=== PATIENT | male | born 1990 | race Caucasian/White ===

== ENCOUNTER 2017-05-17 19:42 | Emergency (ER) | payer BC ==
[~2017-05-17] VITALS: Ht 172.7 cm; Wt 117.0 kg
[2017-05-17] MEDS ORDERED: ACETAMINOPHEN 325 MG TABLET PO ONE (22:00)
[2017-05-17] MEDS ORDERED: ACETAMINOPHEN 325 MG TABLET ONE (22:01)
[2017-05-17 22:30] VITALS: BP 117/70
== END 2017-05-17 22:33 | disposition home or self-care (01) ==
LOC: ED 22:27
DX: N49.2 Inflammatory disorders of scrotum (principal)
CPT/HCPCS: 76870; 81003; 99285

== ENCOUNTER 2017-05-20 14:16 | Inpatient (IN) | payer BC ==
[~2017-05-20] VITALS: Ht 172.7 cm; Wt 121.3 kg
[2017-05-20] MEDS ORDERED: ONDANSETRON 2MG/ML, 2ML IVPush ONE (15:30)
[2017-05-20] MEDS ORDERED: HYDROmorphone 1 MG/ML, 1ML IVPush PRN (15:30)
[2017-05-20] MEDS ORDERED: SODIUM CHLORIDE 0.9% 1,000ML IVBOLUS ONE (15:30)
[2017-05-20] MEDS ORDERED: SODIUM CHLORIDE FLUSH 10ML SYR IVF ONE (15:30)
[2017-05-20 15:44] LABS: BLOOD UREA NITROGEN 14 mg/dL (7-18)
[2017-05-20] MEDS ORDERED: OMNIPAQUE 350 MG/ML, 100ML BOTTLE ONE (16:33)
[2017-05-20] MEDS ORDERED: ONDANSETRON 2MG/ML, 2ML ONE (16:38)
[2017-05-20] MEDS ORDERED: methylPREDNISolone SOD SUCC 40 MG/ML ONE (16:38)
[2017-05-20] MEDS ORDERED: DIPHENHYDRAMINE 50 MG/ML, 1ML ONE (16:38)
[2017-05-20] MEDS ORDERED: DIPHENHYDRAMINE 50 MG/ML, 1ML IVPush ONE (17:00)
[2017-05-20] MEDS ORDERED: methylPREDNISolone SOD SUCC 40 MG/ML IV ONE (17:00)
[2017-05-20] MEDS ORDERED: HYDROmorphone 1 MG/ML, 1ML ONE (17:22)
[2017-05-20] MEDS ORDERED: AMPICILLIN/SULBACTAM 3 GM in SODIUM CHLORIDE 0.9% 100 ML IV ONE (18:00)
[2017-05-20] MEDS ORDERED: ACETAMINOPHEN 325 MG TABLET PO PRN (18:30)
[2017-05-20] MEDS ORDERED: BISACODYL 10 MG SUPP PR PRN (18:30)
[2017-05-20] MEDS ORDERED: ONDANSETRON 2MG/ML, 2ML IVPush PRN (18:30)
[2017-05-20] MEDS ORDERED: VANCOMYCIN PER PHARMACY MC PRN (18:30)
[2017-05-20] MEDS ORDERED: POLYETHYLENE GLYCOL 17 GM PACKET PO PRN (18:30)
[2017-05-20] MEDS: AMPICILLIN/SULBACTAM 3 GM in SODIUM CHLORIDE 0.9% 100 ML IV SCH (18:30)
[2017-05-20 18:50] VITALS: BP 130/79
[2017-05-20] MEDS ORDERED: PHARMACOKINETIC MONITORING MC PRN (19:30)
[2017-05-20] MEDS ORDERED: PHARMACOKINETIC CONSULTATION MC ONE (19:30)
[2017-05-20] MEDS: HEPARIN 5,000 UNITS/ML, 1ML SQ SCH (19:57)
[2017-05-20] MEDS: SODIUM CHLORIDE FLUSH 10ML SYR IVF SCH (19:57)
[2017-05-20] MEDS: VANCOMYCIN 2,000 MG in SODIUM CHLORIDE 0.9% 500 ML IV SCH (19:57)
[2017-05-21 00:14] VITALS: BP 127/82
[2017-05-21] MEDS: AMPICILLIN/SULBACTAM 3 GM in SODIUM CHLORIDE 0.9% 100 ML IV SCH ×4 (00:21→19:50)
[2017-05-21] MEDS: morphine SULFATE 10 MG/ML, 1ML IVPush PRN (00:40)
[2017-05-21 05:22] LABS: BLOOD UREA NITROGEN 11 mg/dL (7-18)
[2017-05-21 05:25] LABS: ASPARTATE AMINO TRANSFERASE 23 U/L (15-37)
[2017-05-21 05:34] VITALS: BP 116/74
[2017-05-21 07:02] VITALS: BP 108/70
[2017-05-21] MEDS: SENNA/DOCUSATE TABLET PO SCH (08:26)
[2017-05-21] MEDS: HEPARIN 5,000 UNITS/ML, 1ML SQ SCH ×2 (08:27→17:44)
[2017-05-21] MEDS: SODIUM CHLORIDE FLUSH 10ML SYR IVF SCH ×2 (08:46→21:00)
[2017-05-21] MEDS: VANCOMYCIN 2,000 MG in SODIUM CHLORIDE 0.9% 500 ML IV SCH ×2 (08:46→21:32)
[2017-05-21] MEDS ORDERED: BUPIVACAINE/PF 0.25% ONE (09:12)
[2017-05-21] MEDS ORDERED: FENTANYL PF 100 MCG/2ML ONE (09:14)
[2017-05-21] MEDS ORDERED: HYDROmorphone 1 MG/ML, 1ML IV PRN (09:30)
[2017-05-21] MEDS ORDERED: OXYcodone 5 MG/5 ML ORAL.SOL UDC PO PRN (09:30)
[2017-05-21] MEDS ORDERED: hydrALAzine 20 MG/ML, 1ML IV PRN (09:30)
[2017-05-21] MEDS ORDERED: PROMETHAZINE 25 MG/ML, 1ML IV PRN (09:30)
[2017-05-21] MEDS ORDERED: LABETALOL 5MG/ML, 20ML IV PRN (09:30)
[2017-05-21] MEDS ORDERED: MIDAZOLAM 1 MG/ML, 2ML IV PRN (09:30)
[2017-05-21] MEDS ORDERED: ONDANSETRON 2MG/ML, 2ML IVPush PRN (09:30)
[2017-05-21] MEDS ORDERED: MEPERIDINE/PF 25MG/0.5ML IVPush PRN (09:30)
[2017-05-21] MEDS ORDERED: FENTANYL PF 100 MCG/2ML IV PRN (09:30)
[2017-05-21] MEDS ORDERED: ONDANSETRON 2MG/ML, 2ML ONE (09:35)
[2017-05-21] MEDS ORDERED: PROPOFOL 10 MG/ML, 20ML ONE (09:35)
[2017-05-21] MEDS ORDERED: SUCCINYLCHOLINE 20 MG/ML, 10ML ONE (09:35)
[2017-05-21] MEDS ORDERED: METOCLOPRAMIDE 5 MG/ML, 2ML ONE (09:35)
[2017-05-21] MEDS ORDERED: DEXAMETHASONE 4 MG/ML, 1ML ONE (09:35)
[2017-05-21] MEDS ORDERED: BUPIVACAINE/PF 0.25% INJ ONE (09:55)
[2017-05-21] MEDS ORDERED: OXYcodone 5 MG/5 ML ORAL.SOL UDC ONE (10:41)
[2017-05-21] MEDS: HYDROcodone/APAP 5/325 TABLET PO PRN ×3 (12:42→21:42)
[2017-05-21 13:37] VITALS: BP 123/79
[2017-05-21 18:29] VITALS: BP 123/75
[2017-05-22] MEDS: HEPARIN 5,000 UNITS/ML, 1ML SQ SCH ×3 (01:42→17:46)
[2017-05-22] MEDS: HYDROcodone/APAP 5/325 TABLET PO PRN ×2 (01:44→08:39)
[2017-05-22] MEDS: AMPICILLIN/SULBACTAM 3 GM in SODIUM CHLORIDE 0.9% 100 ML IV SCH ×5 (01:44→20:52)
[2017-05-22 02:26] VITALS: BP 126/78
[2017-05-22 07:25] VITALS: BP 120/68
[2017-05-22 07:27] LABS: BLOOD UREA NITROGEN 11 mg/dL (7-18)
[2017-05-22] MEDS: SODIUM CHLORIDE FLUSH 10ML SYR IVF SCH ×2 (08:34→20:52)
[2017-05-22] MEDS: VANCOMYCIN 2,000 MG in SODIUM CHLORIDE 0.9% 500 ML IV SCH ×2 (08:34→22:01)
[2017-05-22] MEDS: SENNA/DOCUSATE TABLET PO SCH (08:35)
[2017-05-22] MEDS ORDERED: DIPHENHYDRAMINE 25 MG CAPSULE PO PRN (09:30)
[2017-05-22] MEDS: morphine SULFATE 10 MG/ML, 1ML IVPush PRN ×2 (13:28→14:10)
[2017-05-22 14:41] VITALS: BP 127/72
[2017-05-22 19:59] VITALS: BP 126/78
[2017-05-23 01:24] VITALS: BP 114/70
[2017-05-23] MEDS: AMPICILLIN/SULBACTAM 3 GM in SODIUM CHLORIDE 0.9% 100 ML IV SCH ×3 (02:11→14:13)
[2017-05-23] MEDS: HEPARIN 5,000 UNITS/ML, 1ML SQ SCH ×2 (02:12→09:15)
[2017-05-23 06:21] LABS: BLOOD UREA NITROGEN 14 mg/dL (7-18)
[2017-05-23 06:54] VITALS: BP 116/81
[2017-05-23] MEDS: SODIUM CHLORIDE FLUSH 10ML SYR IVF SCH (08:06)
[2017-05-23] MEDS: VANCOMYCIN 2,000 MG in SODIUM CHLORIDE 0.9% 500 ML IV SCH (09:15)
[2017-05-23] MEDS: SENNA/DOCUSATE TABLET PO SCH (09:15)
[2017-05-23] MEDS ORDERED: HYDR-3240 PO (10:54)
[2017-05-23] MEDS ORDERED: SULF1TAB24 PO (10:54)
[2017-05-23] MEDS: morphine SULFATE 10 MG/ML, 1ML IVPush PRN (13:17)
[2017-05-23 13:33] VITALS: BP 124/75
== END 2017-05-23 15:50 | disposition home health service (06) | DRG 728 ==
LOC: ED 15:45 → EDIP 17:36 → 4NOR 18:47
PROVIDERS: ADMIT Hospitalist; ATTEND Hospitalist
PROC: 0V953ZZ Drainage of Scrotum, Percutaneous Approach (ICD-10-PCS; principal; 2017-05-21 10:30)
DX: N49.2 Inflammatory disorders of scrotum (principal); J45.909 Unspecified asthma, uncomplicated; R00.0 Tachycardia, unspecified; Z91.041 Radiographic dye allergy status; Z83.3 Family history of diabetes mellitus; Z82.49 Family history of ischemic heart disease and other diseases of the circulatory system
CPT/HCPCS: 36415; 72193; 80048; 80053; 82040; 85025; 87070; 87075; 87077; 87186; 87205; 96361; 96365; 96375; J0295; J1100; J1170; J1644; J2405; J2704; J3010; J3370; J3490; Q9967; J0330; J1200; J2270; J2765; J2920; J7030; J7040; Q0163

== ENCOUNTER → 2017-05-24 | Outpatient (CLI) | payer BC ==
[~2017-05-24] MED LIST: HYDR-3240 PO; SULF1TAB24 PO
== END | disposition home or self-care (01) ==
LOC: WOUND 12:58
PROVIDERS: ATTEND Internal Medicine
DX: T81.31XA Disruption of external operation (surgical) wound, not elsewhere classified, initial encounter (principal); J45.909 Unspecified asthma, uncomplicated; Z72.89 Other problems related to lifestyle; Y92.89 Other specified places as the place of occurrence of the external cause; Y83.8 Other surgical procedures as the cause of abnormal reaction of the patient, or of later complication, without mention of misadventure at the time of the procedure
CPT/HCPCS: 97597; 99205; 99215

== ENCOUNTER → 2017-05-25 | Outpatient (CLI) | payer BC | END | disposition home or self-care (01) | LOC: WOUND 08:09 | PROVIDERS: ATTEND Internal Medicine Cardiovascular Disease | DX: T81.31XD Disruption of external operation (surgical) wound, not elsewhere classified, subsequent encounter (principal); J45.909 Unspecified asthma, uncomplicated; Z72.89 Other problems related to lifestyle; Z72.0 Tobacco use; Y83.8 Other surgical procedures as the cause of abnormal reaction of the patient, or of later complication, without mention of misadventure at the time of the procedure | CPT/HCPCS: 99212 ==

== ENCOUNTER → 2017-05-26 | Outpatient (CLI) | payer BC | END | disposition home or self-care (01) | LOC: WOUND 09:30 | PROVIDERS: ATTEND Physician Assistant | DX: T81.31XA Disruption of external operation (surgical) wound, not elsewhere classified, initial encounter (principal); Y83.8 Other surgical procedures as the cause of abnormal reaction of the patient, or of later complication, without mention of misadventure at the time of the procedure; Y92.89 Other specified places as the place of occurrence of the external cause; L03.314 Cellulitis of groin; L02.214 Cutaneous abscess of groin; J45.909 Unspecified asthma, uncomplicated; Z87.891 Personal history of nicotine dependence; Z72.89 Other problems related to lifestyle | CPT/HCPCS: 99212 ==

== ENCOUNTER → 2017-05-31 | Outpatient (CLI) | payer BC | END | disposition home or self-care (01) | LOC: WOUND 14:19 | PROVIDERS: ATTEND Internal Medicine | DX: T81.31XD Disruption of external operation (surgical) wound, not elsewhere classified, subsequent encounter (principal); J45.909 Unspecified asthma, uncomplicated; Z72.89 Other problems related to lifestyle; Z87.891 Personal history of nicotine dependence; Y83.8 Other surgical procedures as the cause of abnormal reaction of the patient, or of later complication, without mention of misadventure at the time of the procedure | CPT/HCPCS: 97597 ==

== ENCOUNTER → 2017-06-07 | Outpatient (CLI) | payer BC | END | disposition home or self-care (01) | LOC: WOUND 12:45 | PROVIDERS: ATTEND Internal Medicine | DX: T81.31XD Disruption of external operation (surgical) wound, not elsewhere classified, subsequent encounter (principal); J45.909 Unspecified asthma, uncomplicated; Z87.891 Personal history of nicotine dependence; Z72.89 Other problems related to lifestyle; Y83.8 Other surgical procedures as the cause of abnormal reaction of the patient, or of later complication, without mention of misadventure at the time of the procedure | CPT/HCPCS: 97597; 99213 ==

== ENCOUNTER 2017-11-18 17:34 | Emergency (ER) | payer BC ==
[~2017-11-18] VITALS: Ht 172.7 cm; Wt 115.9 kg
[2017-11-18 17:37] VITALS: BP 157/88
== END 2017-11-18 18:15 | disposition left against medical advice (07) ==
LOC: ED 18:09
DX: R51 Headache (principal); Z53.21 Procedure and treatment not carried out due to patient leaving prior to being seen by health care provider